=== PATIENT | female | born 1995 | race American Indian/Alaskan Native ===

== ENCOUNTER 2021-07-13 12:14 | Emergency (ER) | payer SELFPAY ==
[2021-07-13 13:45] VITALS: BP 115/68
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
[2021-07-13] MEDS ORDERED: IBUPROFEN 600 MG TAB PO ONE (14:00)
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
== END 2021-07-13 15:19 | disposition home or self-care (01) ==
LOC: ED 12:14
DX: S90.512A Abrasion, left ankle, initial encounter (principal); S90.511A Abrasion, right ankle, initial encounter; S90.812A Abrasion, left foot, initial encounter; S90.811A Abrasion, right foot, initial encounter; W23.0XXA Caught, crushed, jammed, or pinched between moving objects, initial encounter; Y93.89 Activity, other specified; Y92.89 Other specified places as the place of occurrence of the external cause; Y99.8 Other external cause status
CPT/HCPCS: 99283

== ENCOUNTER 2021-09-08 09:07 | Emergency (ER) | payer SELFPAY ==
[2021-09-08] MEDS ORDERED: predniSONE 20 MG TAB PO ONE (09:33)
[2021-09-08] MEDS ORDERED: IPRATROPIUM/ALBUTEROL SULFATE 3 ML AMPUL.NEB IH ONE (09:33)
--- NOTE | 2021-09-08 09:36 | Emergency Department Report ---
ED Asthma HPI - General Chief Complaint: Adult Asthma Stated Complaint: DIFF. IN BREATHING Time Seen by Provider: 09/08/21 09:30 Source: patient Mode of arrival: Ambulatory Limitations: No Limitations - History of Present Illness Initial Comments: The patient was evaluated in the emergency department for symptoms described in the history of present illness. He/she was evaluated in the context of the global COVID-19 pandemic, which necessitated consideration that the patient might be at risk for infection with the virus that causes COVID-19. Instit utional protocols and algorithms that pertain to the evaluation of patients at risk for COVID-19 are in a state of rapid change based on information released by regulatory bodies including the CDC and federal and state organizations. These policies and algorithms were followed during the patient's care in the emergency department. Please note that these policies, procedures and recommendations changed on a rapid basis. 25-year-old -[place] female with a history of asthma presents to the emergency room complaining of chest hurts when she breathes and coughs for 1.5 weeks. She complains of sore throat and nasal congestion. Patient states she has been taken jsxc-svi-icnwtht cough medication. She is unvaccinated possible exposure. She states she is ran out of her asthma medicine. Last menstrual period was 08/26/2021. She reports she is no possible ability of being . Complaint: shortness of breath - Related Data Previous Rx's Medication Instructions Recorded Last Taken Type Ibuprofen [Motrin] 600 mg PO Q8H PRN #20 tablet 07/13/21 Unknown Rx Albuterol Sulfate [Proventil Hfa] 1 puff IH QID PRN #1 hfa.aer.ad 09/08/21 Unknown Rx Fluticasone Propionate [Flovent 1 puff IH BID #1 aer.w.adap 09/08/21 Unknown Rx Hfa] Prednisone [predniSONE 5 mg (6-Day 5 mg PO .TAPER #1 tab.ds.pk 09/08/21 Unknown Rx Pack, 21 Tabs)] Allergies Allergy/AdvReac Type Severity Reaction Status Date / Time No Known Allergies Allergy Verified 07/13/21 13:50 ED Review of Systems ROS: Stated complaint: DIFF. IN BREATHING Other details as noted in HPI Comment: All other systems reviewed and negative ED Past Medical Hx - Social History Smoking Status: Never Smoker - Medications Home Medications: Home Medications Medication Instructions Recorded Confirmed Last Taken Type Ibuprofen [Motrin] 600 mg PO Q8H PRN #20 tablet 07/13/21 Unknown Rx Albuterol Sulfate [Proventil Hfa] 1 puff IH QID PRN #1 hfa.aer.ad 09/08/21 Unknown Rx Fluticasone Propionate [Flovent 1 puff IH BID #1 aer.w.adap 09/08/21 Unknown Rx Hfa] Prednisone [predniSONE 5 mg (6-Day 5 mg PO .TAPER #1 tab.ds.pk 09/08/21 Unknown Rx Pack, 21 Tabs)] ED Physical Exam - General Limitations: No Limitations General appearance: alert, in no apparent distress - Head Head exam: Present: atraumatic, normocephalic - Eye Eye exam: Present: normal appearance - ENT ENT exam: Present: mucous membranes moist - Neck Neck exam: Present: normal inspection - Respiratory Respiratory exam: Present: normal lung sounds bilaterally, other (Cough). Absent: respiratory distress - Cardiovascular Cardiovascular Exam: Present: regular rate, normal rhythm. Absent: systolic murmur, diastolic murmur, rubs, gallop - GI/Abdominal GI/Abdominal exam: Present: soft, normal bowel sounds - Extremities Exam Extremities exam: Present: normal inspection - Back Exam Back exam: Present: normal inspection - Neurological Exam Neurological exam: Present: alert, oriented X3 - Psychiatric Psychiatric exam: Present: normal affect, normal mood - Skin Skin exam: Present: warm, dry, intact, normal color. Absent: rash ED Course Vital Signs 09/08/21 09/08/21 09/08/21 09:16 10:34 11:17 Temperature 98.2 F 98.0 F Pulse Rate 96 H 109 H Pulse Rate [ 86 Anterior Bilateral Throughout] Respiratory 20 18 Rate Respiratory 18 Rate [Anterior Bilateral Throughout] Blood Pressure 121/72 Blood Pressure 129/76 [Left] O2 Sat by Pulse 99 100 Oximetry 09/08/21 09/08/21 11:18 11:27 Temperature 98.0 F Pulse Rate 109 H Pulse Rate [ Anterior Bilateral Throughout] Respiratory 18 18 Rate Respiratory Rate [Anterior Bilateral Throughout] Blood Pressure 129/76 Blood Pressure [Left] O2 Sat by Pulse 100 Oximetry ED Medical Decision Making - Radiology Data Radiology results: report reviewed Institution [facility] 1 Approval Date 2021-09-08 10:50:36 Other Patient ID My Comment(s) Study Comments [facility] [address] [place] [address] XRay Report Signed Patient: JUAN MOCTEZUMA MR#: [id number] 7 : 1995 Acct:[id number] Age/Sex: 25 / F ADM Date: 09/08/21 Loc: ED Attending Dr: Ordering Physician: LINDA WORKMAN Date of Service: 09/08/21 Procedure(s): XR chest routine 2V Accession Number(s): [id number] cc: LINDA WORKMAN Fluoro Time In Minutes: CHEST 2 VIEWS INDICATION / CLINICAL INFORMATION: sob,cough ,chest tightness. COMPARISON: None available. FINDINGS: SUPPORT DEVICES: None. HEART / MEDIASTINUM: No significant abnormality. LUNGS / PLEURA: No significant pulmonary or pleural abnormality. No pneumothorax. ADDITIONAL FINDINGS: No significant additional findings. IMPRESSION: 1. No acute findings. Signer Name: Fredi Scott MD Signed: 09/08/2021 10:44 AM Workstation Name: [id number] Transcribed By: SB Dictated By: FREDI SCOTT MD Electronically Authenticated By: FREDI SCOTT MD Signed Date/Time: 09/08/21 104 DD/ 43 TD/TT: - Medical Decision Making 25-year-old -[place] female with a history of asthma presents to the emergency room complaining of chest hurts when she breathes and coughs for 1.5 weeks. She complains of sore throat and nasal congestion. Patient states she has been taken vmlh-vdf-hmolhhf cough medication. She is unvaccinated possible exposure. She states she is ran out of her asthma medicine. Last menstrual period was 08/26/2021. She reports she is no possible ability of being . Chest x-ray, DuoNeb steroids. Critical care attestation.: If time is entered above; I have spent that time in minutes in the direct care of this critically ill patient, excluding procedure time. ED Disposition Clinical Impression: Asthma Disposition: HOME / SELF CARE / HOMELESS Is pt being admited?: No Does the pt Need Aspirin: No Condition: Stable Instructions: Asthma (ED), Asthma, Adult, [id number] Additional Instructions: Chest x-ray is negative. Use your inhalers as prescribed. Follow-up with a primary care provider. Prescriptions: Fluticasone Propionate [Flovent Hfa] 1 puff IH BID #1 aer.w.adap Prednisone [predniSONE 5 mg (6-Day Pack, 21 Tabs)] 5 mg PO .TAPER #1 tab.ds.pk Albuterol Sulfate [Proventil Hfa] 1 puff IH QID PRN #1 hfa.aer.ad PRN Reason: Wheezing Referrals: PRIMARY CARE, [Primary Care Provider] - 3-5 Days [facility] [Provider Group] - 3-5 Days Time of Disposition: 12:59
--- NOTE | 2021-09-08 10:48 | XRay Report ---
CHEST 2 VIEWS INDICATION / CLINICAL INFORMATION: sob,cough ,chest tightness. COMPARISON: None available. FINDINGS: SUPPORT DEVICES: None. HEART / MEDIASTINUM: No significant abnormality. LUNGS / PLEURA: No significant pulmonary or pleural abnormality. No pneumothorax. ADDITIONAL FINDINGS: No significant additional findings. IMPRESSION: 1. No acute findings. Signer Name: Fredi Colorado MD Signed: 09/08/2021 10:44 AM Workstation Name: [id number]
[2021-09-08 13:32] VITALS: BP 120/71
== END 2021-09-08 13:32 | disposition home or self-care (01) ==
LOC: ED 09:07
DX: J45.909 Unspecified asthma, uncomplicated (principal)
CPT/HCPCS: 71046; 94644; 99283; J7512

== ENCOUNTER 2022-01-15 21:18 | Emergency (ER) | payer SELFPAY ==
[2022-01-15 21:36] VITALS: BP 136/94
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
[2022-01-16] MEDS: ACETAMINOPHEN 325 MG TAB PO ONE (00:30)
[2022-01-16] MEDS: IBUPROFEN 400 MG TAB PO ONE (00:30)
== END 2022-01-16 00:35 | disposition home or self-care (01) ==
LOC: ED 21:18
DX: T23.202A Burn of second degree of left hand, unspecified site, initial encounter (principal); T31.0 Burns involving less than 10% of body surface; F17.200 Nicotine dependence, unspecified, uncomplicated; Z72.89 Other problems related to lifestyle; Z79.899 Other long term (current) drug therapy; X08.8XXA Exposure to other specified smoke, fire and flames, initial encounter; Y93.89 Activity, other specified; Y92.89 Other specified places as the place of occurrence of the external cause; Y99.8 Other external cause status
CPT/HCPCS: 99282